=== PATIENT | male | born 1990 | race Caucasian/White ===

== ENCOUNTER 2018-06-26 10:59 | Emergency (ER) | payer OTHER ==
--- NOTE | 2018-06-26 11:27 | Emergency Department Report ---
Blank Doc - Documentation Documentation: Chest pain that started this morning while in bed. location left chest with some minor numbness. No N/V. No PMH. Hx/o of strenuous work. This initial assessment diagnostic orders/clinical plan/treatment (s) is/Are subjectto change based on patient's health status, clinical progession and re- assessment by fellow clinical providers in the ED. Further treatment and work-up at subsequent clinical providers decretion. Patient/guardians urged not to elope from s their condition may be serious if not clinically assessed and managed. Inital order include: EKG, CXR cardiac markers
[2018-06-26 12:15] LABS: Basophils # (Auto) 0.1 K/mm3 (0.0-0.1); Basophils % (Auto) 1.1 % (0.0-1.8); Eosinophils # (Auto) 0.3 K/mm3 (0.0-0.4); Eosinophils % (Auto) 6.7 % (0.0-4.3); Hematocrit 45.6 % (35.5-45.6); Hemoglobin 15.5 gm/dl (11.8-15.2); Lymphocytes # (Auto) 1.5 K/mm3 (1.2-5.4); Lymphocytes % (Auto) 30.4 % (13.4-35.0); Mean Corpuscular HGB Conc 34 % (32-34); Mean Corpuscular Volume 87 fl (84-94); Monocytes # (Auto) 0.3 K/mm3 (0.0-0.8); Monocytes % (Auto) 6.5 % (0.0-7.3); Platelet Count 271 K/mm3 (140-440); Red Blood Count 5.26 M/mm3 (3.65-5.03); Red Cell Distribution Width 13.2 % (13.2-15.2)
[2018-06-26 12:20] LABS: Alanine Aminotransferase 37 units/L (7-56); Albumin 4.5 g/dL (3.9-5); BUN/Creatinine Ratio 13; Blood Urea Nitrogen 12 mg/dL (9-20); Calcium 9.7 mg/dL (8.4-10.2); Hemolysis Index 10
[2018-06-26 12:23] VITALS: BP 116/63
--- NOTE | 2018-06-26 12:29 | Emergency Department Report ---
ED Chest Pain HPI - General Chief Complaint: Chest Pain Stated Complaint: CHEST PAIN Time Seen by Provider: 06/26/18 11:23 Source: patient Mode of arrival: Ambulatory Limitations: No Limitations - History of Present Illness Initial Comments: Mr. Castorena is a very pleasant healthy 27-year-old male without significant past medical history presents with chest pain. This morning he developed sudden onset of chest pain while resting. Sharp pain in the left chest with associated left arm numbness. Since the initial incident, he has sharp pain which comes and goes lasting seconds at a time. He denies shortness of breath. Denies abdominal pain. He has recently decreased his caffeine intake. He normally drinks several cups of coffee and containers of energy drinks. However over the last month he is only drinking one cup of coffee per day. Over the last month he has not been eating as healthy as he shoulder. Fast food mostly. Has noticed new heartburn. 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 Brother has history of murmur. His father has history of heart disease. No history of premature heart disease as he can recall. -: Sudden, This morning Onset: during rest Pain Location: left chest Severity: moderate Severity scale (0 -10): 0 Quality: sharp Consistency: intermittent, now resolved Improves With: nothing Worsens With: nothing - Related Data Allergies Allergy/AdvReac Type Severity Reaction Status Date / Time No Known Allergies Allergy Unverified 06/26/18 11:01 Heart Score - HEART Score History: Slightly suspicious EKG: Normal Age: < 45 Risk factors: No known risk factors Troponin: < normal limit HEART Score: 0 ED Review of Systems ROS: Stated complaint: CHEST PAIN Other details as noted in HPI Comment: All other systems reviewed and negative Constitutional: denies: fever, malaise Respiratory: denies: cough Cardiovascular: chest pain ED Past Medical Hx - Past Medical History Previous Medical History?: No - Surgical History Past Surgical History?: No - Family History Family history: other ("heart disease") - Social History Smoking Status: Never Smoker Substance Use Type: None ED Physical Exam - General Limitations: No Limitations General appearance: alert, in no apparent distress - Head Head exam: Present: atraumatic, normocephalic - Eye Eye exam: Present: normal appearance - ENT ENT exam: Present: mucous membranes moist - Neck Neck exam: Present: normal inspection, full ROM - Respiratory Respiratory exam: Present: normal lung sounds bilaterally. Absent: respiratory distress, wheezes, rales, rhonchi - Cardiovascular Cardiovascular Exam: Present: regular rate, normal rhythm, normal heart sounds. Absent: systolic murmur, diastolic murmur, rubs, gallop - GI/Abdominal GI/Abdominal exam: Present: soft, normal bowel sounds. Absent: distended, tenderness, guarding, rebound - Rectal Rectal exam: Present: deferred - Extremities Exam Extremities exam: Present: normal inspection - Back Exam Back exam: Present: normal inspection - Neurological Exam Neurological exam: Present: alert, oriented X3 - Psychiatric Psychiatric exam: Present: normal affect, normal mood - Skin Skin exam: Present: warm, dry, intact, normal color. Absent: rash ED Course Vital Signs 06/26/18 06/26/18 06/26/18 11:13 12:19 12:20 Temperature 97.9 F Pulse Rate 90 77 71 Respiratory 16 12 14 Rate Blood Pressure 116/63 Blood Pressure 121/73 [Right] O2 Sat by Pulse 98 98 99 Oximetry 06/26/18 12:21 Temperature Pulse Rate 72 Respiratory 20 Rate Blood Pressure 116/63 Blood Pressure [Right] O2 Sat by Pulse 99 Oximetry ED Medical Decision Making - Lab Data Result diagrams: 06/26/18 11:38 06/26/18 11:38 - EKG Data EKG shows normal: sinus rhythm, axis, intervals, QRS complexes, ST-T waves Rate: normal (rate 80 bpm) - EKG Data Interpretation: normal EKG - Radiology Data Radiology results: report reviewed Chest x-ray 2 view PA Lateral: No acute process - Medical Decision Making Mr. Castorena is a healthy young gentleman who presents with chest pain. I suspect musculoskeletal pain such as spasm or ectopy versus mild ectopy such as PVCs. No indication of ACS, pericarditis, pulmonary embolism, pneumonia, pneumothorax. CBC chemistry troponin all within normal limits. I recommended ibuprofen and stretching exercises. Also recommended heat application. Discharged home with referral to outside clinic for full physical exam. Critical care attestation.: If time is entered above; I have spent that time in minutes in the direct care of this critically ill patient, excluding procedure time. ED Disposition Clinical Impression: Chest wall pain Disposition: DC-01 TO HOME OR SELFCARE Is pt being admited?: No Does the pt Need Aspirin: No Condition: Stable Instructions: Chest Pain (ED) Referrals: WILI BAKER MD [Primary Care Provider] - 3-5 Days Forms: Work/School Release Form(ED)
--- NOTE | 2018-06-26 13:03 | XRay Report ---
ROUTINE CHEST, TWO VIEWS: HISTORY: chest pain. The trachea, heart, mediastinal contour, lung hamilton and bony thorax are unremarkable. IMPRESSION: Unremarkable chest x-ray.
== END 2018-06-26 12:42 | disposition home or self-care (01) ==
LOC: ED 10:59
DX: R07.89 Other chest pain (principal); R20.0 Anesthesia of skin
CPT/HCPCS: 36415; 71046; 80053; 84484; 85025; 93005; 93010

== ENCOUNTER 2018-06-29 21:58 | Emergency (ER) | payer OTHER ==
[2018-06-30] MEDS ORDERED: TORADOL IV ONE (03:39)
[2018-06-30] MEDS ORDERED: NACL 0.9% 1000 ML 1,000 ML IV ONE (03:39)
[2018-06-30] MEDS ORDERED: ZOFRAN IV ONE (03:39)
[2018-06-30 04:14] LABS: Basophils % (Auto) 0.4 % (0.0-1.8); Eosinophils # (Auto) 0.2 K/mm3 (0.0-0.4); Eosinophils % (Auto) 2.6 % (0.0-4.3); Hematocrit 43.3 % (35.5-45.6); Hemoglobin 14.8 gm/dl (11.8-15.2); Lymphocytes # (Auto) 1.9 K/mm3 (1.2-5.4); Lymphocytes % (Auto) 24.1 % (13.4-35.0); Mean Corpuscular HGB Conc 34 % (32-34); Mean Corpuscular Volume 86 fl (84-94); Monocytes # (Auto) 0.6 K/mm3 (0.0-0.8); Monocytes % (Auto) 8.1 % (0.0-7.3); Platelet Count 236 K/mm3 (140-440); Red Blood Count 5.01 M/mm3 (3.65-5.03); Red Cell Distribution Width 13.3 % (13.2-15.2)
[2018-06-30 04:28] LABS: Alanine Aminotransferase 33 units/L (7-56); Albumin 4.5 g/dL (3.9-5); BUN/Creatinine Ratio 20; Blood Urea Nitrogen 16 mg/dL (9-20); Calcium 9.3 mg/dL (8.4-10.2); Hemolysis Index 10
[2018-06-30 04:29] LABS: Bilirubin,Urine NEG (Negative); Blood,Urine NEG (Negative); Color,Urine Yellow (Yellow); Mucus,Urine FEW /HPF; Protein,Urine <15 mg/dL mg/dL (Negative); Urobilinogen,Urine < 2.0 mg/dL (<2.0); WBC,Urine < 1.0 /HPF (0.0-6.0)
--- NOTE | 2018-06-30 05:22 | Cat Scan Report ---
PROCEDURE: CT ABDOMEN PELVIS W CON TECHNIQUE: Computerized axial tomography of the abdomen and pelvis was performed in the venous and d elayed excretory phases after the IV injection of iodinated nonionic contrast. HISTORY: RUQ pain COMPARISONS: None . FINDINGS: Partially visualized intrathoracic contents are unremarkable. The liver, gallbladder, pancreas, spleen, and adrenal glands are unremarkable. Kidneys show no worrisome lesions, hydronephrosis, or calculi. Urinary bladder is unremarkable. Small and large bowel are normal in caliber. No findings of appendicitis. There is trace dependent fr ee fluid in the pelvis.. No pneumoperitoneum or focal fluid collection to suggest abscess formation. Aorta is normal in course and caliber. Superficial soft tissues are unremarkable. No acute or aggressive appearing skeletal findings. IMPRESSION: Nonspecific trace free fluid in the pelvis. No other acute findings in the abdomen or pelvis. Conside r ultrasound follow-up for additional evaluation of right upper quadrant pain as warranted. This document is electronically signed by Martínez Callahan MD., June 30 2018 05:20:48 AM ET
--- NOTE | 2018-06-30 05:53 | Emergency Department Report ---
ED Abdominal Pain HPI - General Chief Complaint: Abdominal Pain Stated Complaint: UPPER ABDOMINAL PAIN Time Seen by Provider: 06/30/18 03:38 Source: patient Mode of arrival: Ambulatory Limitations: No Limitations - History of Present Illness Severity scale (0 -10): 5 - Related Data Previous Rx's Medication Instructions Recorded Last Taken Type Famotidine [Pepcid] 20 mg PO BID #60 tablet 06/30/18 Unknown Rx Naproxen 500 mg PO BID PRN #30 tablet 06/30/18 Unknown Rx Allergies Allergy/AdvReac Type Severity Reaction Status Date / Time No Known Allergies Allergy Unverified 06/26/18 11:01 ED Review of Systems ROS: Stated complaint: UPPER ABDOMINAL PAIN Other details as noted in HPI ED Past Medical Hx - Past Medical History Previous Medical History?: Yes Hx Arthritis: Yes Additional medical history: Bronchitis - Surgical History Past Surgical History?: No - Social History Smoking Status: Never Smoker Substance Use Type: Alcohol - Medications Home Medications: Home Medications Medication Instructions Recorded Confirmed Last Taken Type Famotidine [Pepcid] 20 mg PO BID #60 tablet 06/30/18 Unknown Rx Naproxen 500 mg PO BID PRN #30 tablet 06/30/18 Unknown Rx ED Physical Exam - General Limitations: No Limitations ED Course Vital Signs 06/29/18 22:02 Temperature 97.9 F Pulse Rate 97 H Respiratory 18 Rate Blood Pressure 121/52 O2 Sat by Pulse 99 Oximetry ED Medical Decision Making - Lab Data Result diagrams: 06/30/18 03:46 06/30/18 03:46 - Radiology Data Radiology results: report reviewed, image reviewed PROCEDURE: CT ABDOMEN PELVIS W CON TECHNIQUE: Computerized axial tomography of the abdomen and pelvis was performed in the venous and delayed excretory phases after the IV injection of iodinated nonionic contrast. HISTORY: RUQ pain COMPARISONS: None . FINDINGS: Partially visualized intrathoracic contents are unremarkable. The liver, gallbladder, pancreas, spleen, and adrenal glands are unremarkable. Kidneys show no worrisome lesions, hydronephrosis, or calculi. Urinary bladder is unremarkable. Small and large bowel are normal in caliber. No findings of appendicitis. There is trace dependent free fluid in the pelvis.. No pneumoperitoneum or focal fluid collection to suggest abscess formation. Aorta is normal in course and caliber. Superficial soft tissues are unremarkable. No acute or aggressive appearing skeletal findings. IMPRESSION: Nonspecific trace free fluid in the pelvis. No other acute findings in the abdomen or pelvis. Consider ultrasound follow-up for additional evaluation of right upper quadrant pain as warranted. This document is electronically signed by Hayley Suh MD., June 30 2018 05:20:48 AM ET Transcribed By: SREEDHAR Dictated By: HAYLEY SUH MD Electronically Authenticated By: HAYLEY SUH MD Signed Date/Time: 06/30/18521 DD/ 1 - Medical Decision Making CT Abd pelvis normal , plan, pepcid, naproxen prn pain, follow up with pcp in 2- 3 days , return to ed if symptoms worsen, pt verbalized agreement and understanding of discharge plan. Critical care attestation.: If time is entered above; I have spent that time in minutes in the direct care of this critically ill patient, excluding procedure time. ED Disposition Clinical Impression: Abdominal pain Qualifiers: Abdominal location: right upper quadrant Qualified Code(s): R10.11 - Right upper quadrant pain Disposition: - TO HOME OR SELFCARE Is pt being admited?: No Does the pt Need Aspirin: No Condition: Stable Instructions: Abdominal Pain (ED), Acute Abdominal Pain (ED) Prescriptions: Famotidine [Pepcid] 20 mg PO BID #60 tablet Naproxen 500 mg PO BID PRN #30 tablet PRN Reason: pain Referrals: PRIMARY CARE, [Primary Care Provider] - 3-5 Days Forms: Work/School Release Form(ED) Time of Disposition: 05:53
[2018-06-30 06:03] VITALS: BP 122/56
== END 2018-06-30 06:02 | disposition home or self-care (01) ==
LOC: ED 21:58
DX: R10.11 Right upper quadrant pain (principal); M19.90 Unspecified osteoarthritis, unspecified site
CPT/HCPCS: 36415; 74177; 80053; 81001; 83690; 85025; 96361; 96374; 96375; 99284; J1885; J2405; J7030; Q9967